=== PATIENT | male | born 2005 | race Two or more races ===

== ENCOUNTER 2024-11-20 15:19 | Emergency (ER) | payer OTHER ==
[~2024-11-20] VITALS: Ht 182.9 cm; Wt 90.0 kg
[2024-11-20 15:28] VITALS: TEMP 98.6
[2024-11-20] MEDS: IBUPROFEN 600 MG TABLET PO ONE (16:18)
[2024-11-20] MEDS: ACETAMINOPHEN/CODEINE 300-30 MG TABLET PO ONE (16:18)
[2024-11-20 16:30] VITALS: BP 115/62; PULSE 65; RESP 17; O2SAT 98
[2024-11-20] MEDS ORDERED: IBUP-1554 PO (16:53)
[2024-11-20] MEDS ORDERED: ACET-2080 PO (16:53)
== END 2024-11-20 17:12 | disposition home or self-care (01) ==
LOC: EMS 15:19
DX: S63.601A Unspecified sprain of right thumb, initial encounter (principal); Z88.0 Allergy status to penicillin; Z79.899 Other long term (current) drug therapy; W22.8XXA Striking against or struck by other objects, initial encounter; Y93.89 Activity, other specified; Y92.89 Other specified places as the place of occurrence of the external cause; Y99.8 Other external cause status
CPT/HCPCS: 99284; 73110-TC; 73140-TC; Z7502; Z7610

== ENCOUNTER 2024-12-14 06:56 | Emergency (ER) | payer OTHER ==
[~2024-12-14] VITALS: Ht 182.9 cm; Wt 90.9 kg
[~2024-12-14 06:56] MED LIST: ACET-2080 PO; IBUP-1554 PO
[2024-12-14 07:07] VITALS: TEMP 98.5
[2024-12-14] MEDS: CARBAMIDE PEROXIDE 6.5% 15 ML OTIC SOLUTION AD ONE (08:47)
[2024-12-14 09:34] VITALS: BP 116/76; PULSE 65; RESP 18; O2SAT 98
== END 2024-12-14 09:40 | disposition home or self-care (01) ==
LOC: EMS 06:56
DX: H61.21 Impacted cerumen, right ear (principal); Z88.0 Allergy status to penicillin
CPT/HCPCS: 69209; 99282; Z7502; Z7610